=== PATIENT | female | born 1990 | race Caucasian/White ===

== ENCOUNTER 2022-10-30 19:58 | Emergency (ER) | payer SELFPAY ==
[2022-10-30 20:09] VITALS: BP 164/92; PULSE 94; RESP 17; TEMP 36.8; O2SAT 98; BMI 34.7
--- NOTE | 2022-10-30 20:15 | CTR_ITS ---
PROCEDURE INFORMATION: Exam: CT Abdomen And Pelvis With Contrast Exam date and time: 10/30/2022 8:59 PM Age: 32 years old Clinical indication: Abdominal pain; Prior surgery; Surgery date: 6+ months; Surgery type: Hernia repair. Tubal. Csection. Patient HX: Periumbilical pain; Additional info: Pain, HX of hernia repair. Pain at repair site TECHNIQUE: Imaging protocol: Computed tomography of the abdomen and pelvis with contrast. Radiation optimization: All CT scans at this facility use at least one of these dose optimization techniques: automated exposure control; mA and/or kV adjustment per patient size (includes targeted exams where dose is matched to clinical indication); or iterative reconstruction. Contrast material: OMNI 350; Contrast volume: 100 ml; Contrast route: INTRAVENOUS (IV); REPORTING DATA: Count of CT and Cardiac NM exams in prior 12 months: This patient has received 0 known CTs and 0 known cardiac nuclear medicine studies in the 12 months prior to the current study. COMPARISON: No relevant prior studies available. RADIATION DOSE METRICS: Total DLP (mGy-cm): 881.1 FINDINGS: Lungs: The lung bases appear unremarkable. Liver: The liver is unremarkable in appearance. Gallbladder and bile ducts: No calcified gallstones in the gallbladder. No gallbladder wall thickening. No pericholecystic fluid. No biliary dilatation. Pancreas: The pancreas is normal in appearance. No pancreatic duct dilatation. Spleen: No focal splenic lesion. No splenomegaly. Adrenal glands: The adrenal glands appear within normal limits. Kidneys and ureters: Right kidney demonstrates subcentimeter simple appearing cysts. No hydronephrosis in the kidneys. No obstructive uropathy. Stomach and bowel: No acute gastric abnormality demonstrated. The small bowel is unremarkable as demonstrated. No acute abnormality/inflammatory change of the colon. Appendix: The appendix is normal in appearance. No evidence of appendicitis. Intraperitoneal space: No pneumoperitoneum. No significant fluid collection. Vasculature: No abdominal aortic aneurysm. Lymph nodes: No pathologically enlarged lymph nodes. Urinary bladder: The urinary bladder is unremarkable in appearance. Reproductive: Uterus and ovaries are unremarkable. Bones/joints: Unremarkable. No acute osseous abnormality. Soft tissues: Postop change in the left anterolateral abdominal wall, series 3, images 50-54, suggestive of ventral hernia repair. There is a recurrent 3 cm hernia in this area, containing only fat. CT/CT abdomen pelvis w con* [id number] IMPRESSION: 1. Postop change in the left anterolateral abdominal wall, series 3, images 50-54, suggestive of ventral hernia repair. There is a recurrent 3 cm hernia in this area, containing only fat. 2. No acute bowel abnormality identified. 3. No acute abnormality of the solid organs demonstrated. COMMENTS: Consistent with the [employer]'s Incidental Findings Committee white paper (J Am Bernardo Radiol 2018): Any incidental renal lesion less than 1 cm or classified as too small to characterize, or any incidental cystic renal lesion characterized as simple-appearing, is likely benign. No follow-up imaging is recommended for these lesions per consensus recommendations based on imaging criteria.
[2022-10-30 20:48] LABS: HCG Qualitative Urine. Negative (Negative)
[2022-10-30 20:49] LABS: Add Urine Microscopic? YES; Bilirubin Urine Neg (Negative); Blood Urine Neg (Negative); Glucose Urine UA Norm (Normal); Ketones Urine Negative (Negative); Leukocyte Esterase Urine Negative (Negative); Nitrate Urine Negative (Negative); Protein Urine Neg (Negative); RBC Urine 0-4 /hpf (0-2); Specific Gravity, Urine 1.015 (1.005-1.030); Urine Appearance Hazy (CLEAR); Urine Color Straw (Yellow); Urobilinogen Urine Norm (Negative); WBC Urine 0-4 /hpf (0-5); pH Urine 5 (5-7)
[2022-10-30 20:50] LABS: Add Urine Culture? No; Bacteria Urine 1+ /hpf
[2022-10-30 20:55] LABS: Basophils % 0.4 %; Eosinophils # 0.2 10^3/uL (0.0-0.8); Eosinophils % 1.8 %; Lymphocytes # 3.5 10^3/uL (0.8-4.8); Lymphocytes % 38.5 %; Mean Corpuscular HGB Conc 34.2 g/dL (30-55); Mean Corpuscular Hemoglobin 30.8 pg (27-33); Mean Corpuscular Volume 90.1 fl (85-98); Mean Platelet Volume 10.4 fL (7.4-10.4); Monocytes # 0.4 10^3/uL (0.2-0.9); Monocytes % 4.4 %; Neutrophils # 4.93 10^3/uL (1.8-7.7); Neutrophils % 54.7 %; Nucleated Red Blood Cells % 0 %; Platelet Count 426 10^3/cmm (157-399); Red Blood Count 4.77 10^6/uL (3.85-5.65); Red Cell Distribution Width 12.4 % (12.1-15.1); White Blood Count 9.03 10^3/uL (3.29-11.43)
[2022-10-30 20:59] LABS: Alanine Aminotransferase 27 U/L (0-33); Albumin Level 4.6 g/dL (3.5-5.2); Alkaline Phosphatase 75 U/L (35-105); Anion Gap 11.6 (5-19); Aspartate Amino Transferase 18 U/L (0-32); Blood Urea Nitrogen 11 mg/dL (6-20); Calcium 9.4 mg/dL (8.5-10.5); Carbon Dioxide 25 mmol/L (22-29); Chloride 100 mmol/L (98-107); Globulin 3.1 g/dL (1.3-4.6); Glomerular Filtration Rate 114.4 mL/min (90-130); Glucose 100 mg/dL (65-115); Osmolality Calculated 275 mOsm/kg (285-295); Potassium 3.6 mmol/L (3.5-5.1); Sodium 133 mmol/L (136-145); Total Bilirubin 0.2 mg/dL (0.15-1.2); Total Protein 7.7 g/dL (6.6-8.7)
[2022-10-30] MEDS: iohexol 350 mg/mL 500 mL Btl (per mL) IV (21:01)
--- NOTE | 2022-10-30 22:02 | ED_ITS ---
HPI - Abdominal Pain General: Chief Complaint: Abdominal Pain Stated Complaint: swelling and pain on left side abdomin Time Seen by Provider: 10/30/22 20:14 Source: patient Mode of arrival: ambulatory Limitations: no limitations History of Present Illness: Patient presents to the emergency department today for evaluation treatment of concerns for pain around a previously treated ventral hernial site and new left upper quadrant pain. Patient reports that many years ago she had an ectopic which was discovered by exploratory abdominal surgery. Patient had an open procedure and developed a hernia at her incision site. She states they did go in and try and repair the hernia however, she still feels a bump and believes part of the site has reopened. It is sometimes tender. Patient is concerned as there is also an area in her left upper quadrant now that is regularly bulging and full. She states she often hears borborygmi in that area and when she bends over, experiences significant increase in pain in that area. She has not been running fevers. She does not vomit. No change in bowel habits. Patient is new to the area as she is moved from [place]-where she had her original hernia surgery performed. She does not have primary care in the area at this time. Review of Systems General: Reports: 10 or more systems reviewed and unremarkable except in HPI and below Physical Exam Const: COMMON NORMALS: no acute distress, patient oriented x3 and alert HENMT: COMMON NORMALS: normocephalic, atraumatic, hearing grossly normal bilaterally and moist oral mucous membranes HEAD & SCALP: normocephalic and atraumatic Eye: COMMON NORMALS: Equal, round and reactive pupils present, EOMs intact bilaterally and conjunctivae normal CONJUNCTIVA: Yes conjunctivae normal PUPIL: Yes Equal, round and reactive pupils present Neck/C-Spine: COMMON NORMALS: full ROM and no JVD Lymph: LYMPHATIC: no lymphadenopathy noted Resp: COMMON NORMALS: normal respiratory effort, No retractions, No use of accessory muscles and clear to auscultation bilaterally AUSCULTATION: clear to auscultation bilaterally Cardio: COMMON NORMALS: no JVD, regular rate and regular rhythm RATE: regular rate RHYTHM: regular rhythm GI: OTHER: Normoactive bowel sounds. Patient does have a small bump in the area of her ventral hernia-not obviously worse with palpation. No signs of overlying erythema. Patient does seem to have an area of diffuse firmness in the left upper quadrant which is tender on palpation. No other obvious abnormality of the abdomen. : COMMON NORMALS: Yes no CVA tenderness BLADDER/KIDNEY EXAM: Yes no CVA tenderness Back/Pelvis: COMMON NORMALS: no CVA tenderness, no thoracic nor lumbar tenderness and thoraco-lumbar ROM normal Extremity: COMMON NORMALS: normal to inspection, full ROM and capillary refill normal Neuro: COMMON NORMALS: patient oriented x3 SENSORIUM/ORIENTATION: Yes alert Psych: COMMON NORMALS: mental status grossly normal, Normal thought process present, cooperative, normal affect and activity/motor behavior normal THOUGHT PROCESS: Normal thought process present Skin: COMMON NORMALS: no rashes or lesions noted and no wounds GENERAL SKIN EXAM: no rashes or lesions noted Course Vital Signs: Vital signs: Vital Signs Temperature 98.2 F 10/30/22 20:09 Pulse Rate 94 10/30/22 20:09 Respiratory Rate 17 10/30/22 20:09 Blood Pressure 164/92 10/30/22 20:09 Pulse Oximetry 98 10/30/22 20:09 Oxygen Delivery Me thod Room Air 10/30/22 20:09 MDM - Abdominal Pain Medical Decision Making Patient's lab work is unremarkable. CT exam shows approximately 3 cm of her ventral hernia containing fat but no intestine. There was no acute findings in the left upper quadrant at this time. I did request she have follow-up with a [facility] doctor and have requested a follow-up through the case management workers to get this established as patient should have continued monitoring follow-up for reports of her abdominal discomfort. Patient may benefit from a colonoscopy or specialty evaluation with her negative work-up here today. However, patient was given strict return precautions to come back to the emergency department for any acute change or worsening in condition including bloody stools, vomiting, or fever. Patient verbalizes understanding and agreement to the treatment plan. Differential Diagnosis Likely abdominal pain; Unlikely acute appendicitis, calculus of kidney, con stipation, diverticulitis, endometriosis, gastroenteritis or small bowel obstruction Lab Data 10/30/22 20:17 10/30/22 20:17 Labs/Radiology: Radiology Impressions Abdomen/Pelvis CT 10/30/22 20:15 IMPRESSION: 1. Postop change in the left anterolateral abdominal wall, series 3, images 50-54, suggestive of ventral hernia repair. There is a recurrent 3 cm hernia in this area, containing only fat. 2. No acute bowel abnormality identified. 3. No acute abnormality of the solid organs demonstrated. COMMENTS: Consistent with the [employer]'s Incidental Findings Committee white paper (J Am Bernardo Radiol 2018): Any incidental renal lesion less than 1 cm or classified as too small to characterize, or any incidental cystic renal lesion characterized as simple-appearing, is likely benign. No follow-up imaging is recommended for these lesions per consensus recommendations based on imaging criteria. Laboratory Results WBC 9.03 10^3/uL (3.29-11.43) 10/30/22 20:17 RBC 4.77 10^6/uL (3.85-5.65) 10/30/22 20:17 Hgb 14.70 g/dL (11.27-16.99) 10/30/22 20:17 Hct 43.0 % (36-47) 10/30/22 20:17 MCV 90.1 fl (85-98) 10/30/22 20:17 MCH 30.8 pg (27-33) 10/30/22 20:17 MCHC 34.2 g/dL (30-55) 10/30/22 20:17 RDW 12.4 % (12.1-15.1) 10/30/22 20:17 Plt Count 426 10^3/cmm (157-399) H 10/30/22 20:17 MPV 10.4 fL (7.4-10.4) 10/30/22 20:17 Neut % (Auto) 54.7 % 10/30/22 20:17 Lymph % (Auto) 38.5 % 10/30/22 20:17 Garrett % (Auto) 4.4 % 10/30/22 20:17 Eos % (Auto) 1.8 % 10/30/22 20:17 Baso % (Auto) 0.4 % 10/30/22 20:17 Neut # (Auto) 4.93 10^3/uL (1.8-7.7) 10/30/22 20:17 Lymph # (Auto) 3.5 10^3/uL (0.8-4.8) 10/30/22 20:17 Garrett # (Auto) 0.4 10^3/uL (0.2-0.9) 10/30/22 20:17 Eos # (Auto) 0.2 10^3/uL (0.0-0.8) 10/30/22 20:17 Baso # (Auto) 0.0 10^3/uL (0.0-0.1) 10/30/22 20:17 Nucleated RBC % (auto) 0 % 10/30/22 20:17 Nucleated RBCs # 0.0 /100WBC 10/30/22 20:17 Sodium 133 mmol/L (136-145) L 10/30/22 20:17 Potassium 3.6 mmol/L (3.5-5.1) 10/30/22 20:17 Chloride 100 mmol/L (98-107) 10/30/22 20:17 Carbon Dioxide 25 mmol/L (22-29) 10/30/22 20:17 Anion Gap 11.6 (5-19) 10/30/22 20:17 BUN 11 mg/dL (6-20) 10/30/22 20:17 Creatinine 0.6 mg/dL (0.5-0.9) 10/30/22 20:17 GFR Calculation 114.4 mL/min (90-130) 10/30/22 20:17 Glucose 100 mg/dL (65-115) 10/30/22 20:17 Calculated Osmolality 275 mOsm/kg (285-295) L 10/30/22 20:17 Calcium 9.4 mg/dL (8.5-10.5) 10/30/22 20:17 Total Bilirubin 0.2 mg/dL (0.15-1.2) 10/30/22 20:17 AST 18 U/L (0-32) 10/30/22 20:17 ALT 27 U/L (0-33) 10/30/22 20:17 Alkaline Phosphatase 75 U/L (35-105) 10/30/22 20:17 Total Protein 7.7 g/dL (6.6-8.7) 10/30/22 20:17 Albumin 4.6 g/dL (3.5-5.2) 10/30/22 20:17 Globulin 3.1 g/dL (1.3-4.6) 10/30/22 20:17 HCG, Qual Negative (Negative) 10/30/22 20:24 Urine Color Straw (Yellow) 10/30/22 20:24 Urine Appearance Hazy (CLEAR) A 10/30/22 20:24 Urine pH 5 (5-7) 10/30/22 20:24 Ur Specific B[place]er 1.015 (1.005-1.030) 10/30/22 20:24 Urine Protein Neg (Negative) 10/30/22 20:24 Urine Glucose (UA) Norm (Normal) 10/30/22 20:24 Urine Ketones Negative (Negative) 10/30/22 20:24 Urine Blood Neg (Negative) 10/30/22 20:24 Urine Nitrate Negative (Negative) 10/30/22 20:24 Urine Bilirubin Neg (Negative) 10/30/22 20:24 Urine Urobilinogen Norm mg/dL (Negative) 10/30/22 20:24 Ur Leukocyte Esterase Negative (Negative) 10/30/22 20:24 Urine RBC 0-4 /hpf (0-2) H 10/30/22 20:24 Urine WBC 0-4 /hpf (0-5) H 10/30/22 20:24 Ur Squamous Epith Cells 5-10 /hpf (0-5) H 10/30/22 20:24 Amorphous Sediment Not Reportable 10/30/22 20:24 Urine Bacteria 1+ /hpf (NONE) H 10/30/22 20:24 All radiology interpretation(s) finalized by discharge Discharge Plan Discharge Patient Disposition: Home Clinical Impression: Hernia, ventral, Abdominal pain, LUQ Condition: Stable Discharge Orders: Discharge ED (Routine); Ordered 10/30/22 Ordered By: Becky Solano Discharge Diet: Usual diet Discharge Activity: Increase activity as tolerated Patient Instructions: Abdominal Pain (ED) Activity Restrictions/Additional Instructions: Lab work today looks great. Imaging shows that there is approximately 3 cm of your ventral hernia which has again reopened. There is no intestine present in the hernia however. There is no abnormality appreciated on the scan in the left upper quadrant however, as there are still various options for diagnosis of discomfort in this reason, I have requested a follow-up appointment with the primary care doctor to continue this work-up. However, for any reason you develop fever, bloody stools, or vomiting with or without eating we do recommend being seen and reevaluated. Coding Level of Care Code ED Hot Tar Roofer for Kandace Prater
[2022-10-30 22:08] VITALS: BP 152/109; PULSE 69; RESP 16; O2SAT 97
--- NOTE | 2022-11-01 08:25 | PC.SOCIAL ---
PCP Appt Messaged [facility] requesting appt to establish primary care. Clinic to contact patient with appt date/time.
== END 2022-10-30 22:05 | disposition home or self-care (01) ==
PROVIDERS: Emergency Provider Physician Assistant
DX: R10.12 Left upper quadrant pain (principal); K43.9 Ventral hernia without obstruction or gangrene
CPT/HCPCS: 36415; 74177; 80053; 81001; 81025; 85025; 99285; Q9967

== ENCOUNTER 2022-11-30 16:29 | Emergency (ER) | payer SELFPAY ==
[2022-11-30 16:35] VITALS: BP 168/111; PULSE 105; RESP 16; TEMP 36.9; O2SAT 95; BMI 35.6
--- NOTE | 2022-11-30 16:45 | XRR_ITS ---
PROCEDURE INFORMATION: Exam: XR Chest Exam date and time: 11/30/2022 4:48 PM Age: 32 years old Clinical indication: Cough TECHNIQUE: Imaging protocol: Radiologic exam of the chest. Views: 1 view. COMPARISON: CT abdomen pelvis w con* [id number] 10/30/2022 8:59 PM FINDINGS: Lungs: Unremarkable. No consolidation. Pleural spaces: Unremarkable. No pleural effusion. No pneumothorax. Heart/Mediastinum: Unremarkable. No cardiomegaly. Bones/joints: Mild dextroscoliosis of the thoracic spine. XR/XR chest 1V portable [id number] IMPRESSION: No acute findings.
--- NOTE | 2022-11-30 16:51 | ED_ITS ---
HPI - Wound/Laceration General: Chief Complaint: Wound/Laceration Stated Complaint: lac right hand/cough Time Seen by Provider: 11/30/22 16:43 Source: patient Mode of arrival: ambulatory Limitations: no limitations History of Present Illness: 32-year-old female states she had cut her right index finger with a knife just prior to arrival the very distal tip is a superficial laceration she is up-to-date on her tetanus she rates her pain a 2 out of 10. States she is also had a cough for the last 2 weeks states she has seasonal asthma and always has cough congestion wheezing at this time the year and typically has to be on steroids she denies any fever. Associated symptoms: Denies chills, fever(s), nausea or vomiting Review of Systems Const: Denies: fever(s), chills, body aches or change in appetite Eyes: Denies: blurry vision or eye discomfort ENMT: Denies: throat pain or dental pain Card: Denies: chest pain Resp: Reports: non-productive cough GI: Denies: abdominal pain, nausea, vomiting or diarrhea : Denies: dysuria Musc: Denies: neck pain or back pain Skin/Breast: Denies: rash Neuro: Denies: headache(s) Psych: Denies: depression Mauri/Lymph: Denies: easy bruising All/Imm: Denies: urticaria Physical Exam Const: COMMON NORMALS: no acute distress, patient oriented x3 and healthy appearing HENMT: COMMON NORMALS: normocephalic and atraumatic HEAD & SCALP: normocephalic and atraumatic Neck/C-Spine: COMMON NORMALS: full ROM and supple Chest: COMMONS NORMALS: normal inspection of the chest and normal palpation of entire chest wall Resp: COMMON NORMALS: normal respiratory effort, No retractions, No use of accessory muscles and clear to auscultation bilaterally AUSCULTATION: clear to auscultation bilaterally Cardio: COMMON NORMALS: regular rate, regular rhythm and No murmurs present (Cardio) RATE: regular rate RHYTHM: regular rhythm Extremity: COMMON NORMALS: full ROM NARRATIVE EXTREMITY EXAM: Superficial less than 1 cm laceration to tip of right index finger Neuro: COMMON NORMALS: patient oriented x3, moves all extremities and no focal motor deficits Psych: COMMON NORMALS: mental status grossly normal, Normal thought process present and cooperative THOUGHT PROCESS: Normal thought process present Skin: COMMON NORMALS: no rashes or lesions noted and no wounds GENERAL SKIN EXAM: no rashes or lesions noted Procedures Laceration Laceration 1: Site: hand Side (If applicable): right Size (cm): 1 Description: linear Depth: simple, single layer Pre-repair: wound explored Skin layer closed with: other (dermabond) Course Vital Signs: Vital signs: Vital Signs Temperature 98.4 F 11/30/22 16:35 Pulse Rate 105 H 11/30/22 16:35 Respiratory Rate 16 11/30/22 16:35 Blood Pressure 168/111 11/30/22 16:35 Pulse Oximetry 95 11/30/22 16:35 Oxygen Delivery Me thod Room Air 11/30/22 16:35 MDM - Wound/Laceration Medical Decision Making Patient presents here with a finger laceration I did Dermabond she is also had a cough for the last 2 weeks likely her asthma we will start her on prednisone we will refill her albuterol nebulizers that she ran out on she has no signs of pneumonia she is to return if worsening. Medical Records I reviewed the patient's medical records. XR interpretation done by ED provider, pending radiology final review ED provider radiology interpretation(s): Chest x-ray no acute abnormality Discharge Plan Discharge Patient Disposition: Home Clinical Impression: Laceration, Asthma exacerbation Condition: Stable Prescriptions: New albuterol sulfate 2.5 mg /3 mL (0.083 %) solution for nebulization 2.5 mg INHALATION Q4H PRN (Reason: shortness of breath or wheezing) Qty: 90 0RF prednisone 50 mg tablet 50 mg PO DAILY Qty: 5 0RF Discharge Orders: Discharge ED (Routine); Ordered 11/30/22 Ordered By: Dangelo Barreto Discharge Diet: Advance as tolerated Discharge Activity: Resume usual activity Patient Instructions: Asthma (ED), Skin Adhesive Care (ED) Coding Level of Care Code ED Loss Control Consultant for Kandace Prater
[2022-11-30] MEDS: predniSONE 20 mg Tablet 60 MG PO (16:59)
== END 2022-11-30 17:03 | disposition home or self-care (01) ==
PROVIDERS: Emergency Provider Emergency Medicine
DX: S61.210A Laceration without foreign body of right index finger without damage to nail, initial encounter (principal); J45.901 Unspecified asthma with (acute) exacerbation; W26.0XXA Contact with knife, initial encounter
CPT/HCPCS: 12001; 71045; 99283; J7512